=== PATIENT | male | born 1970 | race Caucasian/White ===

== ENCOUNTER 2018-04-19 23:38 | Inpatient (IN) ==
[2018-04-19] MEDS ORDERED: SALINE FLUSH 10ml SYRINGE IVF PRN (23:45)
[2018-04-19] MEDS ORDERED: ONDANSETRON 4 MG/2 ML INJECTION IVP ONE (23:45)
[2018-04-19] MEDS ORDERED: NS 1,000 ML IV ONE (23:45)
--- NOTE | 2018-04-19 23:50 | Emergency Department Report ---
Nausea/Vomiting/Diarrhea HPI - General Stated complaint: HTN Time Seen by Provider: 04/19/18 23:45 - History of Present Illness HPI Narrative: 47-year-old male with nausea vomiting, diaphoresis. Patient awoke this morning not feeling well, but went to work anyway. He has been lightheaded and very tired all day. Did throw up at work more than once. Denies chest pain or shortness of breath. Denies diabetes, however blood sugar check by EMS was greater than 350. He does have a history of anxiety and psychiatric issues and does take medications, see list. Patient was noted to be significantly tachycardic and hypertensive when EMS arrived. - Related Data Home Medications Medication Instructions Recorded Confirmed Albuterol Sulfate [Proventil Hfa 18 gm IH PRN #0 11/08/09 04/20/18 90mcg] Advair Diskus (Fluticasone 250 1 puff INH Q12H 09/25/17 04/20/18 mcg-salmeterol 50 mcg)dose powdr for inhalation Klonopin (clonazepam)1 mg tablet 1 mg PO TID #0 tab 09/25/17 04/20/18 Lamictal (lamotrigine) 100 mg 100 mg PO BID 09/25/17 04/20/18 tablet Seroquel (quetiapine) 25 mg tablet 25 mg PO DAILY tab 09/25/17 04/20/18 haloperidol 2 mg tablet 2 mg PO HS tab 09/25/17 04/20/18 Previous Rx's Medication Instructions Recorded Famotidine [Acid Controller] 20 mg PO HS #30 tab 04/21/18 Folic Acid [Folate] 1 mg PO DAILY #100 tab 04/21/18 Guaifenesin LA [Mucinex LA] 1,200 mg PO DAILY tab 04/21/18 Multi-Vitamin + Mineral 1 tab PO DAILY tab 04/21/18 [Therapeutic - M] PEG 3350 17gm PACKET [Miralax] 17 gm PO DAILY packet 04/21/18 Phosphorus Neutral [K-Phos 500 mg PO [facility] #40 tab 04/21/18 *Neutral* Tablet] Thiamine HCl 100 mg PO DAILY #100 tab 04/21/18 Allergies Allergy/AdvReac Type Severity Reaction Status Date / Time aripiprazole Allergy Unknown Verified 04/20/18 00:06 cyclobenzaprine HCl Allergy Unknown Uncoded 04/20/18 02:47 Review of Systems All systems: reviewed and negative except as stated PFSH Patient Stated Medical History Ulcer Yes Clinic Medical History (Last Updated 04/20/18 @ 14:18 by Emma Whitney MD) Hypogonadotropic hypogonadism (Chronic Medical) Improved on testosterone. Hyperthyroidism, subclinical (Resolved Medical ~2013) Appears to be having a relapse. Alcohol abuse (Acute Medical) Allergic rhinitis (Acute Medical) Anxiety (Acute Medical) Asthma (Acute Medical) Depression (Acute Medical) PUD (peptic ulcer disease) (Acute Medical) previously treated; H. pylori + Surgical History: n/a Family History: Family History (Last Updated 04/20/18 @ 14:17 by Emma Whitney MD) Maternal Grandfather Aneurysm, aortic Mother Anxiety COPD (chronic obstructive pulmonary disease) - Social History Smoking status: Former smoker Alcohol intake frequency: does not drink Physical Exam - Limitations Limitations: no limitations - General General appearance: alert - Normal Exams: Head:: Normocephalic without trauma Chest/Respirations:: Clear all kruse, with good airflow, and symmetry bilaterally Cardiovascular:: without murmur or gallop, Pulses 2+ all extremities, capillary refill, <2 seconds all extremities Abdomen:: Bowel sounds positive, soft, non-tender, non-distended, no hepatosplenomegaly, masses or bruits noted Neurological:: Patient is alert, and oriented, cranial nerves, motor/sensory/ cerebellar, exams w/o gross deficits, to observation - Cardiovascular Cardiovascular exam: Present: tachycardia Course Vital Signs Temperature 98.1 F 04/19/18 23:40 Pulse Rate 123 H 04/19/18 23:40 Respiratory Rate 24 04/19/18 23:40 Blood Pressure 163/117 H 04/19/18 23:40 Pulse Oximetry 98 04/19/18 23:40 Temperature 98.1 F 04/21/18 16:26 Pulse Rate 108 H 04/21/18 16:26 Respiratory Rate 20 04/21/18 16:26 Blood Pressure 139/93 H 04/21/18 16:26 Pulse Oximetry 96 04/21/18 16:26 Nausea/Vomiting/Diarrhea - MDM Narrative Medical decision making narrative: Peripheral IV placed with 1 L normal saline bolus. Zofran 4 mg given IV. Labs ordered and x-ray and EKG ordered.. X-ray showed no specific findings, EKG did show significant sinus tachycardia with possible ST elevation. However troponin is negative. Patient denies any chest pain. CMP shows anion gap elevation of 25 along with elevated bilirubin and liver function study. White count is normal with left shift. Beta hydroxybutyrate is negative and glucose elevated to 300. ABG obtained with pH of 7.296. Insulin 5 units given IV. This is an obvious anion gap acidosis. In working through possible causes, kept returning to alcoholic ketoacidosis. Patient's arrived and the 3 of us spent 20 minutes at bedside reviewing his history at which point he admitted to drinking and she agreed. He initially stated he had maybe 4 beers on occasion. However his shook her head and he ultimately agreed he drank probably 8-12 beers a day. 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 He has been drinking all day every day and quit approximately 24 hours ago to sober up to go back to work. Alcoholic ketoacidosis with dehydration. IV banana bag started. Ativan 1 mg given IV. A shoulder admitted to ICU, hospitalist accepted admission. - Differential Diagnosis Likely: food poisoning, gastroenteritis, dehydration - Medical Records Attestation: I reviewed the patient's medical records. - Lab Data Attestation: I reviewed the patient's lab results. Result diagrams: 04/21/18 04:01 04/21/18 04:01 Lab Results 04/19/18 04/19/18 04/20/18 Range/Units 23:45 23:54 00:25 WBC 9.9 (4.5-11.0) T/MM3 RBC 4.98 (4.50-5.90) M/MM3 Hgb 16.0 (13.5-17.5) GM/DL Hct 44.9 (41-53) % MCV 90.2 (80-100) UM3 MCH 32.1 (26-34) UUG MCHC 35.6 (31-37) GM/DL RDW Std Deviation 48.8 (36.9-50.2) FL Plt Count 163 D (130-400) T/MM3 MPV 10.5 (9.4-12.4) UM3 Immature Gran % (Auto) Not performed Neut % (Auto) Not performed Lymph % (Auto) Not performed [place] % (Auto) Not performed Eos % (Auto) Not performed Baso % (Auto) Not performed Neut # (Auto) Not performed Lymph # (Auto) Not performed [place] # (Auto) Not performed Eos # (Auto) Not performed Baso # (Auto) Not performed Abs Immat Gran (auto) Not performed Neutrophils % (Manual) 88.0 H (33-66) % Band Neutrophils % 3.0 (0-6) % Lymphocytes % (Manual) 4.0 L (23-45) % Monocytes % (Manual) 5.0 (0-9.0) % Neutrophils # (Manual) 8.7 H (1.8-7.7) T/MM3 Band Neutrophils # 0.3 T/MM3 Lymphocytes # (Manual) 0.4 L (1-4.8) T/MM3 Monocytes # (Manual) 0.5 (0-0.8) T/MM3 RBC Morph Comment Normal Sample Site ABG pH (7.350-7.450) ABG pCO2 (34.0-45.0) MMHG ABG pO2 (80.0-100.0) MMHG ABG HCO3 (22.0-26.0) MEQ/L ABG Total CO2 (23.0-27.0) MEQ/L ABG O2 Saturation (95.0-98.0) % ABG Base Excess (-2.0-2.0) MMOL/L Modified [place]y Test O2 Delivery Method FiO2 (liters per min) LPM Turbidity 70 H (0-20) Sodium 137 (136-146) MEQ/L Potassium 4.0 (3.6-5) MEQ/L Chloride 96 L (98-107) MEQ/L Carbon Dioxide 16 L (22-30) MEQ/L Anion Gap 25 H (5-15) meq/L BUN 12.0 (9-20) MG/DL Creatinine 1.3 (0.8-1.5) mg/dL Estimated Creat Clear Not performed GFR Calculation 59 (>60) mL/min BUN/Creatinine Ratio 9 (6-26) RATIO Glucose 309 H (75-110) MG/DL Calculated Osmolality 276 (261-280) MOSM/KG Calcium 8.5 (8.4-10.2) MG/DL Total Bilirubin 3.10 H (0.20-1.30) MG/DL Icterus Index 3 (0-7) AST 822 H (17-59) U/L ALT 380 H (1-50) U/L Alkaline Phosphatase 278 H (38-126) U/L Troponin I 0.017 (0-0.12) ng/ml Total Protein 7.8 (6.3-8.2) g/dL Albumin 4.4 (3.5-5.0) g/dL Globulin 3.4 (2.4-3.6) G/DL Albumin/Globulin Ratio 1.3 (1.1-2.2) RATIO Specimen Hemolysis 84 H (0-25) Salicylates (2-20) MG/DL B-Hydroxybutyrate 0.20 (0-0.6) mmol/L 04/20/18 04/20/18 Range/Units 00:35 01:09 WBC (4.5-11.0) T/MM3 RBC (4.50-5.90) M/MM3 Hgb (13.5-17.5) GM/DL Hct (41-53) % MCV (80-100) UM3 MCH (26-34) UUG MCHC (31-37) GM/DL RDW Std Deviation (36.9-50.2) FL Plt Count (130-400) T/MM3 MPV (9.4-12.4) UM3 Immature Gran % (Auto) Neut % (Auto) Lymph % (Auto) [place] % (Auto) Eos % (Auto) Baso % (Auto) Neut # (Auto) Lymph # (Auto) [place] # (Auto) Eos # (Auto) Baso # (Auto) Abs Immat Gran (auto) Neutrophils % (Manual) (33-66) % Band Neutrophils % (0-6) % Lymphocytes % (Manual) (23-45) % Monocytes % (Manual) (0-9.0) % Neutrophils # (Manual) (1.8-7.7) T/MM3 Band Neutrophils # T/MM3 Lymphocytes # (Manual) (1-4.8) T/MM3 Monocytes # (Manual) (0-0.8) T/MM3 RBC Morph Comment Sample Site R radial ABG pH 7.296 L (7.350-7.450) ABG pCO2 46 H (34.0-45.0) MMHG ABG pO2 97.7 (80.0-100.0) MMHG ABG HCO3 22.3 (22.0-26.0) MEQ/L ABG Total CO2 23.7 (23.0-27.0) MEQ/L ABG O2 Saturation 96.7 (95.0-98.0) % ABG Base Excess -4.4 L (-2.0-2.0) MMOL/L Modified Corky Test Positive O2 Delivery Method Cannula FiO2 (liters per min) 4 LPM Turbidity (0-20) Sodium (136-146) MEQ/L Potassium (3.6-5) MEQ/L Chloride (98-107) MEQ/L Carbon Dioxide (22-30) MEQ/L Anion Gap (5-15) meq/L BUN (9-20) MG/DL Creatinine (0.8-1.5) mg/dL Estimated Creat Clear GFR Calculation (>60) mL/min BUN/Creatinine Ratio (6-26) RATIO Glucose (75-110) MG/DL Calculated Osmolality (261-280) MOSM/KG Calcium (8.4-10.2) MG/DL Total Bilirubin (0.20-1.30) MG/DL Icterus Index (0-7) AST (17-59) U/L ALT (1-50) U/L Alkaline Phosphatase (38-126) U/L Troponin I (0-0.12) ng/ml Total Protein (6.3-8.2) g/dL Albumin (3.5-5.0) g/dL Globulin (2.4-3.6) G/DL Albumin/Globulin Ratio (1.1-2.2) RATIO Specimen Hemolysis (0-25) Salicylates < 1.0 L (2-20) MG/DL B-Hydroxybutyrate (0-0.6) mmol/L - Radiology Data Attestation: I reviewed the patient's radiology results. - EKG Data EKG #1 EKG attestation: Yes: I reviewed and interpreted this EKG. EKG results narrative: Heart rate 112 EKG shows normal: sinus rhythm Rate: tachycardia [place]/QRS: left axis deviation Interpretation: nonspecific ST-T wave changes (with ST elevation minimal.) Disposition Clinical Impression: Alcoholic ketoacidosis, Dehydration Disposition: 02 To [facility] Acute Care Condition: Stable Time of Disposition: 20:04 - Seen By: physician
[2018-04-20] MEDS ORDERED: INSULIN REGULAR, HUMAN 100 UNIT/ML INJECTION IVP ONE (00:39)
[2018-04-20] MEDS ORDERED: THIAMINE 100 MG, FOLIC ACID INJ 1 MG, MULTI-VIT INFUSION 10 ML in NS 1,000 ML IV ONE (01:12)
[2018-04-20] MEDS ORDERED: INSULIN ASPART 100unit/ml INJECTION SQ PRN ×2 (01:50→16:15)
[2018-04-20] MEDS ORDERED: DEXTROSE 50% SYRINGE 50ml (1 AMP) IVP PRN (01:50)
[2018-04-20] MEDS ORDERED: MAGNESIUM SULFATE 1gm PREMIX 1 GM/100 ML BAG IV ONE (01:50)
[2018-04-20] MEDS: NS 1,000 ML IV SCH ×2 (02:33→14:04)
[2018-04-20 02:50] VITALS: BMI 21.9
--- NOTE | 2018-04-20 03:05 | History & Physical Report ---
History of Present Illness Date: 04/20/18 Chief complaint: weak, HPI: This is a 47 y/o male with a history of bipolar disease and chronic alcohol abuse. He typically drinks anywhere from 8 to 12 beers a day. He had been sober for 2 years and one year ago started drinking again. The patient's work was stopped for 1 week and his alcohol ingestion increased He stopped 1 day ago in preparation for going back to work. At work the patient had onset of weakness and as if he was to pass out. His boss checked his blood pressure and it was elevated. He was referred to the ED for evaluation. In the ED he is discovered to had a gap metabolic acidosis. He has elevated blood sugars (not known to be diabetic) and he is demonstrating signs of withdrawl. At this time he will be admitted to CCU to assist with withdrawl symptoms and HTN. Review of Systems Review of systems: mild headache, blurred vision with an occasional double vision component, no fever, chills or sweats, generally weak, no troubles swallowing, no tinnitus or change in hearing, no neck or jaw pain, no chest pain, no cough or congestion, no abdomen pain, nausa/vomiting with one diarrheal stool today, no focal motor weakness, generally just weak. no skin rashes. 12 point ROS otherwise negative except for outlined above. Past Medical History Medical History: Medical History (Last Updated 04/20/18 @ 14:18 by Emma Whitney MD) Hypogonadotropic hypogonadism (Chronic) Improved on testosterone. Hyperthyroidism, subclinical (Resolved) Onset Date: ~2013 Appears to be having a relapse. Alcohol abuse Allergic rhinitis Anxiety Asthma Depression PUD (peptic ulcer disease) previously treated; H. pylori + Surgical History: n/a Family History: Family History (Last Reviewed 03/29/18 @ 13:26 by Maurisio May MD) Maternal Grandfather Aneurysm, aortic Family History: As Above - Social History Smoking status: Former smoker Substance use type: marijuana, painkillers Alcohol intake: current Alcohol intake frequency: 3 or more drinks per day Last drink: days (ago) (1) Housing: house Household members: spouse service: No Current occupational status: employed Current occupational exposures/hazards: No Does patient use chewing tobacco?: No Current residence: Apartment/Private Home Medications Home Medications Medication Instructions Recorded Confirmed Type Albuterol Sulfate [Proventil Hfa 18 gm IH PRN #0 11/08/09 04/20/18 History 90mcg] Advair Diskus (Fluticasone 250 1 puff INH Q12H 09/25/17 04/20/18 History mcg-salmeterol 50 mcg)dose powdr for inhalation Klonopin (clonazepam)1 mg tablet 1 mg PO TID #0 tab 09/25/17 04/20/18 History Lamictal (lamotrigine) 100 mg 100 mg PO BID 09/25/17 04/20/18 History tablet Seroquel (quetiapine) 25 mg tablet 25 mg PO DAILY tab 09/25/17 04/20/18 History haloperidol 2 mg tablet 2 mg PO HS tab 09/25/17 04/20/18 History Allergies Allergy/AdvReac Type Severity Reaction Status Date / Time aripiprazole Allergy Unknown Verified 04/20/18 00:06 cyclobenzaprine HCl Allergy Unknown Uncoded 04/20/18 02:47 Exam Vital Signs: Temperature 98.1 F 04/19/18 23:40 Pulse Rate 116 H 04/20/18 02:27 Respiratory Rate 12 04/20/18 02:27 Blood Pressure 164/102 H 04/20/18 01:30 Pulse Oximetry 91 04/20/18 02:27 Telemetry Rhythm: Sinus Tachycardia Height/Weight/BMI: Height 1.83 m Weight 73.5 kg Body Mass Index 21.9 - Constitutional Present: mild distress, average body habitus, disheveled, cooperative, somnolent. Absent: obtunded - Routine HEENT Exam Head: Present: normocephalic, atraumatic Eye: Present: PERRL, conjunctivae pink ENT: Present: mucous membranes dry - Routine Neck Exam Present: supple, full ROM - Routine Respiratory Exam Present: CTA bilaterally - Routine Cardiovascular Exam Present: tachycardia. Absent: S3 - Routine Abdominal Exam Present: normoactive bowel sounds, non distended, non tender. Absent: rebound - Routine Extremities Exam Present: no edema, non tender, full ROM - Routine Back/Spine/Pelvis Exam Back/Spine: Present: full ROM - Routine Skin Exam Present: intact, dry - Routine Neurological Exam Present: oriented X3, CN II-XII intact. Absent: alert, sensory deficit, motor deficit - Routine Psychiatric Exam Present: normal thought process, depressed, anxious. Absent: suicidal ideation , homicidal ideation, auditory hallucinations, visual hallucinations, tactile hallucinations, good insight, agitated Results - Labs CBC & Chem 7: 04/20/18 05:02 04/20/18 05:02 Labs: labs reviewed and will be discussed below - ABG Interpretation ABG results: 04/20/18 00:35 ABG pH 7.296 L ABG pCO2 46 H ABG pO2 97.7 ABG HCO3 22.3 ABG Total CO2 23.7 ABG O2 Saturation 96.7 ABG Base Excess -4.4 L Assessment and Plan (1) Alcoholic ketoacidosis Current visit: Yes Status: Acute Assessment and Plan: 1. alcohol withdrawl acute POA: withdrawl protocol in ICU, replace thiamine, folate, already hyperglycemic so additioanl D5 solution not indicated. 2. chronic alcohol abuse POA: counselor/art therapist to stop. perhaps when medically stable work with social service worker about detox options. was sober for 2 yrs and off wagon for past one year 3. alcoholic keotacidosis acute POA: gap metabolic acidosis. fluids, already hyperglycemic so additional d5 not indicated. repeat bmp in the am, should improve 4. hyperglycemia acute POA: correctional plan, check a1c 5. bipolar disease chronic POA: continue home meds of lamictal, hladol, seroquel, clonazempam, stable 6. DVT ppx; SCD, lovenox 7. gastric ppx: PPI DVT Prophylaxis: SCD's, Lovenox GI Prophylaxis: Protonix Resuscitation Status: Full Code - Physician Narrative Physician: Emma Whitney MD Narrative: Date: 04/20/18 Time: 0 Dr. Goncalves's note reviewed. Herber interviewed and examined. CC: Weakness, vomiting, rapid heart rate HPI: Mr. Zhang is a 47-year-old male with long history of alcohol abuse. He had discontinued drinking beer on a tapering Klonopin regimen approximately 2 years ago but relapsed within the past year and has been drinking 8-12 beers daily and consistently drinking 12 beers the week prior to admission. His last drink was at approximately 6 PM on 04/18. He stopped at that time in anticipation of returning to work on 04/19. He had been off work for a week and during that time alcohol use it escalated somewhat. He describes having some emesis the past week without hematemesis and has noted that his heart rate has been rapid for the past month. He checks his heart rate with a pulse ox and heart rate is often 130. Patient denies heartburn or indigestion. He has not been eating well and his reports there has been some minor weight loss. He has a history of hyperthyroidism but thyroid levels were assessed earlier this month and were normal. He describes increasing weakness and reports that he felt bad when he prepared to go to work yesterday afternoon. He reports feeling nauseated and lightheaded and symptoms worsened through the shift and he began to feel that he would pass out. He alerted his boss who checked his blood pressure and found it to be elevated at approximately 190/96. The patient had one episode of emesis at work and was diaphoretic. EMS was called to the workplace and blood sugar was greater than 350 although he has no known history of diabetes mellitus. He was tachycardic on EMS arrival and was subsequently transferred to the emergency room where persistent hypertension, tachycardia, and gap metabolic acidosis consistent with alcoholic ketoacidosis was identified and he was admitted for management. PH/SH/FH: agree with that recorded above by Dr. Goncalves with additions to medical history I made. He has no prior surgeries and reports his mother has a history of COPD and anxiety. His is his alternate decision maker/DPOA and he is a full code. ROS: 10 point review of systems as previously described by Dr. Goncalves; patient reports that he works in a hot environment and sweats a lot causing fluid loss. EXAM: General-slender male, NAD, alert; 98.8, 103, 25, 160/87, 97% on room air HEENT-PERRL, EOMI without nystagmus, conjunctiva clear, sclera anicteric, conjugate gaze, facial structures symmetric, oropharynx clear, neck supple and without adenopathy, mild temporal wasting Lungs-respirations nonlabored, good airflow, breath sounds clear Cardiac-regular rhythm, S1-S2, low-grade tachycardia Abd-soft, mild distention, tender to palpation in the right upper quadrant along the liver margin, no guarding, diminished bowel sounds Ext-without edema Skin-generalized pallor, no wounds noted Neuro-cranial nerves 3-12 intact, motor tone normal, fine tremor with arms outstretched, no drift of the upper extremities, 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 AST 822-627, ALT 380-283, alkaline phosphatase 278-217, bilirubin 3.10-2.6 Platelet count 163-125K 7.296/46/97.7/22.3, 96.7% on 4 L oxygen A1C 5.6 Abdominal series reviewed by myself demonstrating clear lungs and nonspecific bowel gas pattern EKG also reviewed by myself demonstrating normal sinus rhythm with borderline LVH and nonspecific ST changes A/P: Alcoholic ketoacidosis with metabolic acidosis Alcoholic hepatitis, acute Chronic alcohol abuse Nausea/vomiting Dehydration Hyperglycemia Abdominal pain due to alcoholic hepatitis Hypertension Tachycardia Depression/anxiety-chronic hx subclinical hyperthyroidism, normal thyroid tests 03/29/18 Asthma Acute presentation consistent with alcoholic ketoacidosis and hepatitis. Ketoacidosis is clearing with fluids and hydration; thiamine has been initiated on IV in conjunction with folic acid and glucose administration can be initiated if needed at this time although patient has tolerated clear liquids and diet has been advanced. Some nausea this morning in addition to emesis last night requiring antiemetics. PPI initiated given past history of peptic disease although patient believes it was 5-10 years ago. Continue to monitor electrolytes with assessment of magnesium and phosphorus in addition to BMP. Need for alcohol abstinence was discussed with the patient and his . He would likely benefit from formal alcohol treatment program although he felt he could stop alcohol use on his own again as he has previously. At least mild alcoholic hepatitis is present characterized by pain in the right upper quadrant and abnormal liver enzymes. INR will be obtained with the morning labs to permit calculation of a MELD score. Liver will be imaged by sonogram, abdominal region suggests possibility of ascites. Lorazepam available for withdrawal symptoms; patient denies past history of withdrawal seizures. May benefit from addition of steroids or beta nallely, reassess need for medications after initial hydration and when more data available. No indication of renal dysfunction at this time. Suspect hypertension due to withdrawal; tachycardia may reflect withdrawal although patient describes as a chronic symptom. Outpatient records reviewed-last liver enzymes in May 2017 at which time all LFTs normal. Hospital Course Summary Disclaimer: The visit summary below is not to be considered part of the above Progress Note.
[2018-04-20] MEDS: BUDESONIDE INH.SOLN 0.5mg/2ml NEB AEROSOL SCH ×2 (06:45→18:56)
[2018-04-20] MEDS: ARFORMOTEROL NEB 15mcg/2ml AEROSOL SCH ×2 (06:45→18:56)
--- NOTE | 2018-04-20 07:50 | XRay Report ---
Indication: vomit PROCEDURE: PA view of the chest with supine and upright AP views of the abdomen Encounter: Initial Comparison: None FINDINGS: The lungs are mildly hyperinflated, but clear. There is no abnormal airspace opacity, pleural effusion or pneumothorax identified. The heart size, pulmonary vasculature and mediastinum are within normal limits. There is no free air on the upright view. The bowel gas pattern is nonobstructive and nonspecific. Gas is seen in nondilated small and large bowel. IMPRESSION: 1. No acute cardiopulmonary abnormality. 2. No evidence of acute obstruction or free air. .
[2018-04-20] MEDS: PANTOPRAZOLE 40 MG INJECTION IVP SCH ×2 (09:21→22:12)
[2018-04-20] MEDS: QUETIAPINE 25 MG TABLET PO SCH (09:21)
[2018-04-20] MEDS: LAMOTRIGINE 100 MG TABLET PO SCH ×2 (09:21→22:12)
[2018-04-20] MEDS: FOLIC ACID 1 MG TABLET PO SCH (09:21)
[2018-04-20] MEDS: ENOXAPARIN 40 MG/0.4 ML INJECTION SQ SCH (09:21)
[2018-04-20] MEDS: MULTI-VITAMIN + MINERAL TABLET PO SCH (09:21)
[2018-04-20] MEDS: THIAMINE 200mg/2ml INJECTION IVP SCH (09:23)
[2018-04-20] MEDS ORDERED: ONDANSETRON 4 MG/2 ML INJECTION IVP PRN (10:17)
[2018-04-20] MEDS: ClonazePAM 1 MG TABLET PO SCH ×3 (11:27→21:15)
[2018-04-20] MEDS ORDERED: ClonazePAM 1 MG TABLET PO SCH (15:00)
--- NOTE | 2018-04-20 16:50 | Ultrasound Report ---
Indication: alcoholic hepatitis PROCEDURE: US liver: Encounter: Initial Comparison: None Technique: Grayscale and color Doppler sonographic imaging of the right upper quadrant of the abdomen was performed. Findings: Hepatic parenchyma is echogenic and sonographically dense without evidence for focal mass. Normal flow direction in the main portal vein. The gallbladder shows a small area of comet tail artifact along the anterior wall probably representing focal adenomyomatosis. There is no wall thickening, pericholecystic fluid, sonographic Webster's sign or cholelithiasis. Both the intra and extrahepatic biliary system are of normal caliber with the common duct measuring 3 mm in dimension. Visualized portions of the head and body of the pancreas are unremarkable. The right kidney is present without collecting system dilatation. The right kidney measures 11.8 cm in length. No free fluid Impression: 1. Hepatic steatosis and possible cirrhosis. 2. Small area of focal adenomyomatosis in the gallbladder. No evidence of cholelithiasis or acute cholecystitis. .
[2018-04-20] MEDS ORDERED: HALOPERIDOL 1 MG TABLET PO SCH (21:00)
[2018-04-21] MEDS: NS 1,000 ML IV SCH ×2 (01:00→11:28)
[2018-04-21] MEDS: ClonazePAM 1 MG TABLET PO SCH ×3 (01:00→14:48)
[2018-04-21] MEDS: ARFORMOTEROL NEB 15mcg/2ml AEROSOL SCH (08:06)
[2018-04-21] MEDS: BUDESONIDE INH.SOLN 0.5mg/2ml NEB AEROSOL SCH (08:06)
[2018-04-21] MEDS: FOLIC ACID 1 MG TABLET PO SCH (09:14)
[2018-04-21] MEDS: QUETIAPINE 25 MG TABLET PO SCH (09:14)
[2018-04-21] MEDS: MULTI-VITAMIN + MINERAL TABLET PO SCH (09:14)
[2018-04-21] MEDS: LAMOTRIGINE 100 MG TABLET PO SCH (09:15)
[2018-04-21] MEDS: PANTOPRAZOLE 40 MG INJECTION IVP SCH (09:15)
[2018-04-21] MEDS: THIAMINE 200mg/2ml INJECTION IVP SCH (09:15)
[2018-04-21] MEDS: ENOXAPARIN 40 MG/0.4 ML INJECTION SQ SCH (09:15)
[2018-04-21] MEDS ORDERED: POLYETHYL GLYCOL 3350 17gm PACKET PO SCH (09:45)
[2018-04-21 12:19] VITALS: O2SAT 96
[2018-04-21] MEDS ORDERED: GUAIFENESIN LA 600 MG TABLET PO ONE (13:30)
--- NOTE | 2018-04-21 14:34 | XRay Report ---
INDICATION: cough PROCEDURE: CHEST 2-VIEWS UPRIGHT (PA & LAT) Encounter: Initial COMPARISON: None FINDINGS: Small pleural effusions. No focal pneumonia. No pneumothorax. The heart size, mediastinal contours and pulmonary vascularity are within normal limits. There is no significant skeletal abnormality. IMPRESSION: Small pleural effusions. .
[2018-04-21 16:27] VITALS: BP 139/93; PULSE 108; RESP 20; TEMP 98.1
[2018-04-21] MEDS ORDERED: PHOSPHORUS 250 MG TABLET PO SCH (17:30)
--- NOTE | 2018-04-21 18:57 | Discharge Summary ---
Discharge Information Date of admission: 04/20/18 01:19 Anticipated date of discharge: 04/21/18 Attending Physician: Emma Whitney MD Primary care physician: Karel Hamilton MD - Discharge Diagnosis (1) Alcoholic ketoacidosis Status: Acute Alcoholic ketoacidosis with metabolic acidosis Alcoholic hepatitis, acute Chronic alcohol abuse Nausea/vomiting Dehydration Hyperglycemia Abdominal pain due to alcoholic hepatitis Hypertension Tachycardia Depression/anxiety-chronic hx subclinical hyperthyroidism, normal thyroid tests 03/29/18 Asthma - Laboratory Labs: Hemoglobin on admission 16.0, bicarbonate 16, anion gap 25, glucose 309, bilirubin 3.10, AST 822, ALT 380, alkaline phosphatase 278. Blood gas on 04/20/18:7.296/46/97.7/22.3 on 4 L supplemental oxygen 04/21/18 04:01 04/21/18 04:01 Liver enzymes on the date of discharge bilirubin 3.3 with direct bilirubin 1.1, indirect 1.0, AST 317, ALT 208, alkaline phosphatase 149; INR 1.09. - Radiology Radiology: Abdominal series on 04/19/18 demonstrated no acute cardiopulmonary abnormality, nonspecific bowel gas pattern, no evidence of free air. ----- Liver ultrasound on 04/20/18: Hepatic parenchyma is echogenic and sonographically dense without evidence for focal mass. Normal flow direction in the main portal vein. The gallbladder shows a small area of comet tail artifact along the anterior wall probably representing focal adenomyomatosis. There is no wall thickening, pericholecystic fluid, sonographic Webster's sign or cholelithiasis. Both the intra and extrahepatic biliary system are of normal caliber with the common duct measuring 3 mm in dimension. Visualized portions of the head and body of the pancreas are unremarkable. The right kidney is present without collecting system dilatation. The right kidney measures 11.8 cm in length. No free fluid Impression: 1. Hepatic steatosis and possible cirrhosis. 2. Small area of focal adenomyomatosis in the gallbladder. No evidence of cholelithiasis or acute cholecystitis. ----- Chest x-ray on 04/21/18 demonstrated small pleural effusions but no focal infiltrate. History of Present Illness HPI: Mr. Zhang is a 47-year-old male with long history of alcohol abuse. He had discontinued drinking beer on a tapering Klonopin regimen approximately 2 years ago but relapsed within the past year and has been drinking 8-12 beers daily and consistently drinking 12 beers the week prior to admission. His last drink was at approximately 6 PM on 04/18. He stopped at that time in anticipation of returning to work on 04/19. He had been off work for a week and during that time alcohol use it escalated somewhat. He describes having some emesis the past week without hematemesis and has noted that his heart rate has been rapid for the past month. He checks his heart rate with a pulse ox and heart rate is often 130. Patient denies heartburn or indigestion. He has not been eating well and his reports there has been some minor weight loss. He has a history of hyperthyroidism but thyroid levels were assessed earlier this month and were normal. He describes increasing weakness and reports that he felt bad when he prepared to go to work yesterday afternoon. He reports feeling nauseated and lightheaded and symptoms worsened through the shift and he began to feel that he would pass out. He alerted his boss who checked his blood pressure and found it to be elevated at approximately 190/96. The patient had one episode of emesis at work and was diaphoretic. EMS was called to the workplace and blood sugar was greater than 350 although he has no known history of diabetes mellitus. He was tachycardic on EMS arrival and was subsequently transferred to the emergency room where persistent hypertension, tachycardia, and gap metabolic acidosis consistent with alcoholic ketoacidosis was identified and he was admitted for management. Objective Vital signs: Temperature 98.1 F 04/21/18 16:26 Pulse Rate 108 H 04/21/18 16:26 Respiratory Rate 20 04/21/18 16:26 Blood Pressure 139/93 H 04/21/18 16:26 Pulse Oximetry 96 04/21/18 16:26 NAD, alert, cooperative, fluent speech Sclera anicteric Respirations nonlabored, good airflow, breath sounds clear Regular rhythm, S1-S2 Abdomen soft, minimally distended, mild tenderness right upper quadrant but no guarding, bowel sounds present No tremor present with arms outstretched, no flap Height/Weight/BMI: Height 1.83 m Weight 81 kg Body Mass Index 21.9 Hospital Course This is a general summary of the patient's hospital course. For more details refer to the complete medical record. Hospital course: 04/20/18 Acute presentation consistent with alcoholic ketoacidosis and hepatitis. Ketoacidosis is clearing with fluids and hydration; thiamine has been initiated on IV in conjunction with folic acid and glucose administration can be initiated if needed at this time although patient has tolerated clear liquids and diet has been advanced. Some nausea this morning in addition to emesis last night requiring antiemetics. PPI initiated given past history of peptic disease although patient believes it was 5-10 years ago. Continue to monitor electrolytes with assessment of magnesium and phosphorus in addition to BMP. Need for alcohol abstinence was discussed with the patient and his . He would likely benefit from formal alcohol treatment program although he felt he could stop alcohol use on his own again as he has previously. At least mild alcoholic hepatitis is present characterized by pain in the right upper quadrant and abnormal liver enzymes. INR will be obtained with the morning labs to permit calculation of a MELD score. Liver will be imaged by sonogram, abdominal region suggests possibility of ascites. Lorazepam available for withdrawal symptoms; patient denies past history of withdrawal seizures. May benefit from addition of steroids or beta nallely, reassess need for medications after initial hydration and when more data available. No indication of renal dysfunction at this time. Suspect hypertension due to withdrawal; tachycardia may reflect withdrawal although patient describes as a chronic symptom. Outpatient records reviewed-last liver enzymes in May 2017 at which time all LFTs normal. 04/21/18 Mr. Zhang reports minor abdominal discomfort which she attributes to constipation-treated with prune juice and MiraLAX earlier today and indicated it was starting to work at the time of my assessment. He additionally reported that the difficulty was having breathing yesterday is better but he is slightly weak from lying in bed yesterday. His appetite is good and is eating well. He denies tremulousness or excessive anxiety and has required no prn doses of lorazepam per the alcohol withdrawal protocol. Liver enzymes improving progressively; ketoacidosis fully resolved and blood sugars normal today. Blood pressure remains modestly elevated (129/82-151/90) and he is occasionally tachycardic with heart rates up to 112 although often in the 90s. MELD-Na 7-low risk at present; again discussed need for absolute avoidance of alcohol. Patient reports he was previously involved in AA and can resume meetings. He views this hospitalization as a wakeup call and feels he can stop drinking without going to a formal alcohol treatment program. Phosphorus was low this morning and supplement was initiated which will be continued at discharge pending reassessment of labs and office follow-up. Stable for discharge-patient has to follow up with Dr. Hamilton in approximately one week. Cleared to return to work on 04/23 without restrictions. Time spent with patient: discharge greater than 30 minutes Resuscitation Status: Full Code Discharge Plan - Discharge Disposition Discharge Date: 04/21/18 Disposition: Discharged Home, Self-Care *Condition: Stable Reason For Visit (Visit label in EMR): alcoholic ketoacidosis - Discharge Medications *Discharge Medications: New Folic Acid [Folate] 1 mg PO DAILY #100 tab Guaifenesin LA [Mucinex LA] 1,200 mg PO DAILY tab Multi-Vitamin + Mineral [Therapeutic - M] 1 tab PO DAILY tab PEG 3350 17gm PACKET [Miralax] 17 gm PO DAILY packet Phosphorus Neutral [K-Phos *Neutral* Tablet] 500 mg PO [facility] #40 tab Famotidine [Acid Controller] 20 mg PO HS #30 tab Thiamine HCl 100 mg PO DAILY #100 tab Continue Albuterol Sulfate [Proventil Hfa 90mcg] 18 gm IH PRN #0 Depo-Testosterone 100 mg/mL intramuscular oil 200 mg IM Q2WKS #1 ml NS haloperidol 2 mg tablet 2 mg PO HS tab Seroquel (quetiapine) 25 mg tablet 25 mg PO DAILY tab Lamictal (lamotrigine) 100 mg tablet 100 mg PO BID Advair Diskus (Fluticasone 250 mcg-salmeterol 50 mcg)dose powdr for inhalation 1 puff INH Q12H Klonopin (clonazepam)1 mg tablet 1 mg PO TID #0 tab - Discharge Packet/Instructions *Diet: Regular-eat regular meals to avoid acid buildup *Activity: As tolerate; may resume work activities on Thursday without restriction *Pain Management/Treatment: Tylenol or ibuprofen per package instructions as needed *Wound Care: Not applicable Additional Instructions: I have started several medications during this hospitalization including a multivitamin daily, folic acid and thiamine which are B vitamins that become depleted with chronic alcohol use (prescriptions provided but you can typically purchase them [id number]); a phosphorus supplement because phosphorus is low and will need to be rechecked after taking the supplement for about a week; a fiber [id number] help with bowel function if needed; and famotidine to decrease stomach acid. You must stop drinking alcohol-consider returning to for support and follow up with Dr. Hamilton for additional assistance or referral to psychiatry. Your liver tests are abnormal and this will only get worse if you've resume alcohol use. *Expected Signs/Symptoms: May experience mild generalized weakness after dehydration and vomiting prior to hospitalization *Notify Physician if: Nausea, vomiting, dizziness, passing out, vomiting blood *During Business Hours Contact: Dr. Hamilton *After Business Hours Contact: Call [facility] at [phone] and ask that the on-call physician be paged *Pending Lab/Results: No Pending Lab - Referrals/Follow Up *Referrals/Follow Up: Karel Hamilton MD [Primary Care Provider] - 1 Week (Will need CMP, magnesium, and phosphorus checked at follow-up visit in addition to heart rate and blood pressure) - Patient Handouts Patient Handouts: Alcoholic Hepatitis (DC) - Dismissal Complete Discharge Instructions are:: Complete Physician Narrative - Narrative Attestation Narrative: Date: 04/21/18 Time: 778
[2018-04-22] MEDS ORDERED: GUAIFENESIN LA 600 MG TABLET PO SCH (09:00)
== END 2018-04-21 14:50 | disposition home or self-care (01) | DRG 641 ==
LOC: ED 23:38 → EDHOLD 04-20 01:19 → CCU 04-20 01:45 → MED 04-20 17:38
PROVIDERS: ADMIT Emergency Medicine; ATTEND Internal Medicine